=== PATIENT | female | born 1970 | race Caucasian/White ===

== ENCOUNTER 2017-09-15 13:47 | Emergency (ER) | payer MEDICARE, MEDICAID ==
[2017-09-15] MEDS ORDERED: HYDROcodone/Acetaminophen 10/325 mg Tablet ONE (14:14)
[2017-09-15] MEDS ORDERED: Naproxen 500 MG TAB ONE (14:14)
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
== END 2017-09-15 15:20 | disposition home or self-care (01) ==
LOC: MADERS 13:47
DX: S70.01XA Contusion of right hip, initial encounter (principal); M25.511 Pain in right shoulder; F32.9 Major depressive disorder, single episode, unspecified; E66.9 Obesity, unspecified; Z79.899 Other long term (current) drug therapy; V89.2XXA Person injured in unspecified motor-vehicle accident, traffic, initial encounter